=== PATIENT | male | born 1990 | race African-American/Black ===

== ENCOUNTER 2025-03-29 21:34 | Emergency (ER) | payer OTHER ==
[~2025-03-29] VITALS: Ht 175.3 cm; Wt 160.0 kg
[2025-03-29 21:34] VITALS: BP 138/82; PULSE 72; RESP 20; TEMP 98; O2SAT 100
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
[2025-03-29] MEDS ORDERED: IBUP-1455 PO (22:36)
[2025-03-29] MEDS ORDERED: NEOMSUS11 OP (22:36)
[2025-03-29] MEDS: KETOROLAC TROMETH 60MG/2ML VIAL IM ONE (22:50)
[2025-03-29] MEDS: TETRACAINE HCL 2 % TOP SOL 30ML MT ONE (22:51)
[2025-03-29] MEDS: HYDROcodone-ACET 10/325MG TAB PO ONE (22:51)
== END 2025-03-29 22:58 | disposition home or self-care (01) ==
LOC: EDBD 21:34 → ER 21:41
DX: S05.01XA Injury of conjunctiva and corneal abrasion without foreign body, right eye, initial encounter (principal); X58.XXXA Exposure to other specified factors, initial encounter; Y93.89 Activity, other specified; Y92.89 Other specified places as the place of occurrence of the external cause; Y99.8 Other external cause status
CPT/HCPCS: 96372; 99283; J1885